=== PATIENT | female | born 1965 | race Caucasian/White ===

== ENCOUNTER → 2016-09-29 | Outpatient (CLI) | payer BC ==
--- NOTE | 2016-09-29 14:26 | DIAGNOSTIC IMAGING REPORT ---
ULTRASOUND LEFT LOWER EXTREMITY VENOUS CLINICAL HISTORY: Left leg pain. COMPARISON STUDY: No priors. TECHNIQUE: Real-time, grayscale, and color Doppler sonography of the deep veins of the left lower extremity was performed from the inguinal crease to the calf. Compression and augmentation were utilized. FINDINGS: There is no sonographic evidence of deep venous thrombosis identified in the left lower extremity. The common femoral, superficial femoral, and popliteal veins are patent and normally compressible. The greater saphenous vein and the profunda femoris vein at the junction with the common femoral vein are clear. The visualized calf veins are patent. IMPRESSION: There is no sonographic evidence of deep venous thrombosis identified in the left lower extremity. Electronically signed by: Sabas Dennis M.D. 09/29/2016 2:25 PM Dictated Date/Time: 09/29/2016 2:25 PM
--- NOTE | 2016-09-29 14:50 | DIAGNOSTIC IMAGING REPORT ---
KUB HISTORY: Generalized abdominal pain. COMPARISON: None. FINDINGS: The bowel gas pattern is unremarkable. There are no dilated loops of small bowel to suggest an obstruction. No renal calculi. No ureteral calculi. Calcifications in the deep pelvis likely represent phleboliths. Moderate well-formed stool seen within the colon. Mild S-shaped scoliosis of the thoracolumbar spine. No pneumoperitoneum or pneumatosis. IMPRESSION: 1. No evidence for bowel obstruction. 2. Moderate well-formed stool seen within the colon. Electronically signed by: Alok Davidson M.D. 09/29/2016 2:49 PM Dictated Date/Time: 09/29/2016 2:47 PM
--- NOTE | 2016-09-29 14:52 | DIAGNOSTIC IMAGING REPORT ---
LEFT FOOT MIN 3 VIEWS ROUTINE CLINICAL HISTORY: Left foot pain. COMPARISON: None FINDINGS: Tarsometatarsal joints are intact. There is no acute fracture. There may be a bipartite medial sesamoid of the left great toe. There is osteophytosis at the articulation of the sesamoids and the metatarsal head. 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 There is no suspicious osseous lesions. There are no erosions. IMPRESSION: 1. No acute fracture or dislocation of the left foot. 2. Mild arthritis of the left first metatarsophalangeal joint, including degenerative changes involving the sesamoids of the great toe. Suspected bipartite medial sesamoid of the left great toe. An old sesamoid fracture would be difficult to exclude. Electronically signed by: Jose Cazares M.D. 09/29/2016 2:50 PM Dictated Date/Time: 09/29/2016 2:48 PM
== END | disposition home or self-care (01) ==
LOC: C.ULTRBC 13:54
PROVIDERS: ATTEND Nurse Practitioner Family
DX: M79.605 Pain in left leg (principal); M79.672 Pain in left foot; R10.9 Unspecified abdominal pain